=== PATIENT | female | born 1935 | race Native Hawaiian/Other Pacific Islander ===

== ENCOUNTER 2019-09-06 20:12 | Observation (INO) | payer OTHER ==
[~2019-09-06] VITALS: Ht 170.2 cm; Wt 75.0 kg
[2019-09-06 20:25] VITALS: BP 157/60; TEMP 98.9
[2019-09-06 21:34] LABS: PLATELET COUNT 216 K/uL (152-353); POTASSIUM 3.4 mmol/L (3.6-5.2); SODIUM 139 mmol/L (136-145)
[2019-09-06 22:31] LABS: PARTIAL THROMBOPLASTIN TIME 21.6 SECONDS (24.5-33.6)
[2019-09-06 23:19] VITALS: BP 148/54; TEMP 98; Ht 170.2 cm; Wt 75.0 kg
[2019-09-07 04:00] VITALS: BP 129/53; TEMP 98.9
[2019-09-07 08:00] VITALS: BP 126/49; TEMP 98.3
[2019-09-07 09:58] LABS: PLATELET COUNT 212 K/uL (152-353)
[2019-09-07 12:00] VITALS: BP 134/56; TEMP 97.7
[2019-09-07 16:00] VITALS: BP 130/44; TEMP 97.9
[2019-09-07 20:00] VITALS: BP 123/52; TEMP 97.7
[2019-09-08] VITALS: BP 152/67; TEMP 99
[2019-09-08 04:00] VITALS: BP 152/65; TEMP 99
[2019-09-08 08:00] VITALS: BP 119/62; TEMP 98.4
[2019-09-08 10:26] LABS: PLATELET COUNT 211 K/uL (152-353)
[2019-09-08 10:46] LABS: POTASSIUM 3.6 mmol/L (3.6-5.2)
[2019-09-08 12:00] VITALS: BP 167/47; TEMP 98.5
[2019-09-08 16:00] VITALS: BP 150/84; TEMP 98.5
== END 2019-09-08 20:46 | disposition home or self-care (01) ==
LOC: ED 20:12 → MED/SURG 22:43
PROVIDERS: Internal Medicine; ADMIT Hospitalist
DX: J18.8 Other pneumonia, unspecified organism (principal); N39.0 Urinary tract infection, site not specified; I49.8 Other specified cardiac arrhythmias; B96.20 Unspecified Escherichia coli [E. coli] as the cause of diseases classified elsewhere; R06.02 Shortness of breath
CPT/HCPCS: 36600; 80048; 80053; 81000; 82550; 82805; 83605; 83880; 84484; 85027; 85379; 85610; 85730; 87040; 87077; 87086; 87088; 87186; 87899; 93005; 93306; 94640; 94664; 94760; 96365; 96367; 96372; 96375; 99220; 99284; G0378; J0456; J0696; J1650; J1885; J2930; J3490